=== PATIENT | female | born 1955 | race Caucasian/White ===

== ENCOUNTER 2019-09-08 20:57 | Emergency (ER) | payer OTHER, MEDICAID ==
[~2019-09-08] VITALS: Ht 167.6 cm; Wt 33.1 kg
[2019-09-08 21:13] VITALS: Ht 167.6 cm; Wt 33.1 kg
[2019-09-08 23:00] LABS: BASOPHIL % 0.2 % (0-2); PLATELET COUNT 181 x10^3mcL (130-400); RED CELL DISTRIBUTION WIDTH 14.5 % (11.5-14.5)
[2019-09-08 23:19] LABS: ALKALINE PHOSPHATASE 71 U/L (46-116); ALT/SGPT 21 U/L (14-59); AST/SGOT 30 U/L (15-37); BILIRUBIN TOTAL 0.6 mg/dL (0.20-1.00); CALCIUM 7.8 mg/dL (8.5-10.1); CARBON DIOXIDE 25.5 mmol/L (21-32); CHLORIDE SERUM 84 mmol/L (98-107); CREATININE SERUM 0.5 mg/dL (0.6-1.0); GFR1 > 60 mL/min; GLUCOSE SERUM 135 mg/dL (74-106); MAGNESIUM 1.6 mg/dL (1.8-2.4); POTASSIUM SERUM 3.6 mmol/L (3.5-5.1); TOTAL PROTEIN, SERUM 6.8 g/dL (6.4-8.2)
[2019-09-08 23:22] LABS: ALBUMIN 3.1 g/dL (3.4-5.0)
[2019-09-08 23:26] LABS: SODIUM SERUM 115 mmol/L (136-145)
[2019-09-09 00:05] LABS: microscopic required? NO
[2019-09-09 00:13] LABS: urine erythrocyte NEGATIVE (NEGATIVE)
[2019-09-09 01:20] VITALS: BP 117/61
== END 2019-09-09 02:01 | disposition short-term general hospital (02) ==
LOC: ED 20:57
PROVIDERS: Emergency Medicine
DX: E87.1 Hypo-osmolality and hyponatremia (principal); R19.7 Diarrhea, unspecified
CPT/HCPCS: J2405; J7040